=== PATIENT | female | born 1965 | race Caucasian/White ===

== ENCOUNTER 2022-01-11 15:21 | Emergency (ER) | payer MEDICAID ==
[~2022-01-11] VITALS: Ht 165.1 cm; Wt 81.4 kg
[2022-01-11 15:34] VITALS: BP 150/95
--- NOTE | 2022-01-11 15:41 | NUR ---
PT AMB TO BED 7
--- NOTE | 2022-01-11 16:00 | NUR ---
56 Y/O FEMALE BIB SELF C/O CRAMPING PAIN IN THE LOWER ABDOMEN 11/09, DENIES FEVER, NAUSEA OR VOMITING NKA PMH; DENIES
[2022-01-11 16:20] VITALS: BP 106/68
[2022-01-11] MEDS ORDERED: FLUC150T PO ×2 (16:30→16:46)
[2022-01-11] MEDS ORDERED: SULF-59 PO ×2 (16:30→16:46)
[2022-01-11] MEDS ORDERED: FLUCONAZOLE 100 MG TAB PO ONE (16:35)
--- NOTE | 2022-01-11 17:25 | NUR ---
Patient discharged with v/s stable. Written and verbal after care instructions given and explained. Patient alert, oriented and verbalized understanding of instructions. Ambulatory with steady gait. All questions addressed prior to discharge. ID band removed. Patient advised to follow up with PMD. Rx of FLUCONAZOLE, BACTRIM DS given. Patient educated on indication of medication including possible reaction and side effects. Opportunity to ask questions provided and answered.
== END 2022-01-11 17:25 | disposition home or self-care (01) ==
LOC: MED 15:21
DX: N39.0 Urinary tract infection, site not specified (principal); B37.9 Candidiasis, unspecified; R30.0 Dysuria; I10 Essential (primary) hypertension; E78.5 Hyperlipidemia, unspecified; Z88.0 Allergy status to penicillin; Z79.899 Other long term (current) drug therapy
CPT/HCPCS: 81002; 81025; 87086; 99283

== ENCOUNTER 2022-04-30 16:34 | Emergency (ER) | payer MEDICAID, OTHER ==
[~2022-04-30] VITALS: Ht 165.1 cm; Wt 81.6 kg
[~2022-04-30 16:34] MED LIST: FLUC150T PO; SULF-59 PO
[2022-04-30 17:25] VITALS: BP 144/92
--- NOTE | 2022-04-30 18:00 | NUR ---
56/F PRESENTS TO ED WITH C/O ALLERGIC REACTION SINCE SATURDAY, REPORTS TAKING OTC ALLERGY MEDS WITH NO RELIEF, DENIES USE OF NEW FOOD OR PRODUCTS, DENIES SOB. PATIENT DENIES PAIN, NO SIGNS OF HIVES OR REDNESS, REPORTS SKIN IS ITCHY.
[2022-04-30] MEDS ORDERED: DIPH25TA39 PO ×2 (18:18→20:04)
[2022-04-30] MEDS ORDERED: PRED20TA5 PO ×2 (18:18→20:04)
[2022-04-30] MEDS ORDERED: FAMO-92 PO ×2 (18:18→20:04)
[2022-04-30 19:05] VITALS: BP 144/92
--- NOTE | 2022-04-30 19:05 | NUR ---
Patient discharged with v/s stable. Written and verbal after care instructions ABOUT HIVES given and explained. Patient alert, oriented and verbalized understanding of instructions. Ambulatory with steady gait. All questions addressed prior to discharge. ID band removed. Patient advised to follow up with PMD. Rx of BENADRYL, PEPCID AND DELTASONE given. Patient educated on indication of medication including possible reaction and side effects. Opportunity to ask questions provided and answered.
== END 2022-04-30 19:05 | disposition home or self-care (01) ==
LOC: MED 16:34
DX: L50.9 Urticaria, unspecified (principal); I10 Essential (primary) hypertension; Z79.899 Other long term (current) drug therapy; Z88.0 Allergy status to penicillin
CPT/HCPCS: 99283

== ENCOUNTER 2022-10-19 11:43 | Emergency (ER) | payer OTHER ==
[~2022-10-19] VITALS: Ht 165.1 cm; Wt 80.7 kg
[~2022-10-19 11:43] MED LIST changes: +DIPH25TA39 PO; +FAMO-92 PO; +PRED20TA5 PO
[2022-10-19 11:51] VITALS: BP 124/89
--- NOTE | 2022-10-19 12:07 | NUR ---
56/F WALKED IN C/O RASH TO NECK, CHEST, AND UNDER THE BREAST ONSET 4 DAYS AGO. PMH: HTN, PRE-DM
[2022-10-19] MEDS ORDERED: LOTC TP (13:00)
[2022-10-19] MEDS ORDERED: TRIA0.029 TP (13:00)
== END 2022-10-19 13:08 | disposition home or self-care (01) ==
LOC: MED 11:43
DX: R21 Rash and other nonspecific skin eruption (principal); I10 Essential (primary) hypertension; Z79.899 Other long term (current) drug therapy; Z79.2 Long term (current) use of antibiotics; Z88.0 Allergy status to penicillin
CPT/HCPCS: 99283

== ENCOUNTER 2022-12-11 11:23 | Emergency (ER) | payer OTHER ==
[~2022-12-11] VITALS: Ht 165.1 cm; Wt 80.3 kg
[~2022-12-11 11:23] MED LIST changes: +LOTC TP; +TRIA0.029 TP
[2022-12-11 11:47] VITALS: BP 121/86
[2022-12-11] MEDS ORDERED: OLOP2.5D7 OP ×2 (12:59→13:00)
[2022-12-11] MEDS ORDERED: HYD1C TP ×2 (12:59→13:00)
[2022-12-11] MEDS ORDERED: CETI-24 PO ×2 (12:59→13:00)
--- NOTE | 2022-12-11 13:09 | NUR ---
56 Y/O FEMALE BIB SELF C/O ITCHINESS AND RASH ON THE RIGHT ARM AND REDNESS ON BILATERAL SCLERA X4DAYS, DENIES ANY TRAUMA PMH: HTN, HDL, PRE DM ALLERGY: PCN
--- NOTE | 2022-12-11 13:10 | NUR ---
Patient discharged with v/s stable. Written and verbal after care instructions ABOUT ATOPIC DERMATITIS, ALLERGIC CONJUNCTIVITIS given and explained. Patient alert, oriented and verbalized understanding of instructions. Ambulatory with steady gait. All questions addressed prior to discharge. ID band removed. Patient advised to follow up with PMD. Rx of CETERIZINE, HYDROCORTISONE, PATADAY 2.5ML given. Patient educated on indication of medication including possible reaction and side effects. Opportunity to ask questions provided and answered.
== END 2022-12-11 13:10 | disposition home or self-care (01) ==
LOC: MED 11:23
DX: H10.13 Acute atopic conjunctivitis, bilateral (principal); L29.9 Pruritus, unspecified; I10 Essential (primary) hypertension; Z88.0 Allergy status to penicillin; Z79.899 Other long term (current) drug therapy
CPT/HCPCS: 99282

== ENCOUNTER 2022-12-22 22:06 | Emergency (ER) | payer OTHER ==
[~2022-12-22] VITALS: Ht 165.1 cm; Wt 74.8 kg
[~2022-12-22 22:06] MED LIST changes: +CETI-24 PO; +HYD1C TP; +OLOP2.5D7 OP
[2022-12-22 22:12] VITALS: BP 136/86
[2022-12-22] MEDS ORDERED: methylPREDNISolone SS 125 MG/2 ML VIAL IVP ONE (23:20)
--- NOTE | 2022-12-22 23:30 | NUR ---
PT TO BED 8
--- NOTE | 2022-12-22 23:30 | NUR ---
PT IS THAI SPEAKER. PT IS AWAKE AND ALERT. NO DISTRESS ACUTE NOTED.
[2022-12-22] MEDS ORDERED: methylPREDNISolone SS 125 MG/2 ML VIAL IM ONE (23:35)
[2022-12-22] MEDS ORDERED: PRED20TA5 PO (23:55)
[2022-12-23] VITALS: BP 136/86
== END 2022-12-23 | disposition home or self-care (01) ==
LOC: MED 22:06
DX: H10.13 Acute atopic conjunctivitis, bilateral (principal); I10 Essential (primary) hypertension; Z88.0 Allergy status to penicillin; Z79.899 Other long term (current) drug therapy
CPT/HCPCS: 96372; 99283; J2930

== ENCOUNTER 2023-06-04 16:11 | Emergency (ER) | payer OTHER ==
[~2023-06-04] VITALS: Ht 170.2 cm; Wt 82.7 kg
[2023-06-04 16:44] VITALS: BP 135/78; PULSE 83; RESP 19; TEMP 97.8; O2SAT 95
[2023-06-04] MEDS ORDERED: FAMO-90 PO (17:19)
[2023-06-04] MEDS ORDERED: BEN50 PO (17:19)
[2023-06-04] MEDS: DEXAMETHASONE 10 MG/ML VIAL IM ONE (17:49)
[2023-06-04] MEDS: FAMOTIDINE 20 MG TAB PO ONE (17:50)
[2023-06-04 18:04] VITALS: BP 119/67; PULSE 89; RESP 18; TEMP 98; O2SAT 98
== END 2023-06-04 18:06 | disposition home or self-care (01) ==
LOC: MED 16:11
DX: L50.0 Allergic urticaria (principal); I10 Essential (primary) hypertension; E11.9 Type 2 diabetes mellitus without complications; E78.5 Hyperlipidemia, unspecified; Z88.0 Allergy status to penicillin; Z79.899 Other long term (current) drug therapy
CPT/HCPCS: 96372; 99283; J1100; Q0163

== ENCOUNTER 2023-08-07 16:32 | Emergency (ER) | payer OTHER ==
[~2023-08-07] VITALS: Ht 165.1 cm; Wt 82.6 kg
[~2023-08-07 16:32] MED LIST changes: +BEN50 PO; +FAMO-90 PO
[2023-08-07 17:22] VITALS: BP 123/88; PULSE 90; RESP 18; TEMP 98.3; O2SAT 98
[2023-08-07 17:29] VITALS: BP 131/73; PULSE 86; RESP 18; TEMP 98.4; O2SAT 98
[2023-08-07] MEDS ORDERED: PROM118S5 PO (18:25)
[2023-08-07] MEDS ORDERED: KEN.1C TP (18:25)
[2023-08-07] MEDS ORDERED: LOTC TP (18:25)
[2023-08-07] MEDS ORDERED: IBUP-2213 PO (18:25)
[2023-08-07 19:19] LABS: FLU A ANTIGEN negative (NEGATIVE); FLU B ANTIGEN NEGATIVE (NEGATIVE)
[2023-08-07] MEDS ORDERED: NIRM1TAB5 PO (19:24)
== END 2023-08-07 19:09 | disposition home or self-care (01) ==
LOC: MED 16:32
DX: U07.1 COVID-19 (principal); R21 Rash and other nonspecific skin eruption; I10 Essential (primary) hypertension; Z79.899 Other long term (current) drug therapy; Z79.2 Long term (current) use of antibiotics; Z88.0 Allergy status to penicillin
CPT/HCPCS: 71045; 99284

== ENCOUNTER 2023-09-13 23:55 | Inpatient (IN) | payer OTHER ==
[~2023-09-13] VITALS: Ht 165.1 cm; Wt 80.7 kg
[~2023-09-13 23:55] MED LIST changes: +IBUP-2213 PO; +KEN.1C TP; +NIRM1TAB5 PO; +PROM118S5 PO
[2023-09-14] VITALS (10 sets, daily range): BP systolic 111–117; BP diastolic 55–80; PULSE 100–126; RESP 18; TEMP 98.1–102.4; O2SAT 93–98
[2023-09-14] MEDS ORDERED: ACETAMINOPHEN EXTRA STRENGTH 500 MG TAB PO ONE (00:10)
[2023-09-14] MEDS ORDERED: NACL 0.9% 1,000 ML IV ONE (00:45)
[2023-09-14] MEDS ORDERED: KETOROLAC 30 MG/ML VIAL IVP ONE (00:45)
[2023-09-14 01:30] LABS: APPEARANCE,URINE CLEAR (CLEAR); BILIRUBIN,URINE NEGATIVE (NEGATIVE); BLOOD, URINE NEGATIVE (NEGATIVE); COLOR,URINE YELLOW (YELLOW); LEUKOCYTE ESTERASE ,URINE NEGATIVE (NEGATIVE); NITRITE, URINE NEGATIVE (NEGATIVE); PROTEIN,URINE NEGATIVE (NEGATIVE); UGLUCOSE NEGATIVE (NEGATIVE); UROBILINOGEN,URINE 0.2 EU/dL (0.2 - 1)
[2023-09-14] MEDS ORDERED: KETOROLAC 30 MG/ML VIAL ONE (01:57)
[2023-09-14 02:00] LABS: BASOPHILS # (AUTO) 0.1 K/uL (0.00-0.22); BASOPHILS % (AUTO) 0.3 % (0.0-2.0); EOSINOPHILS # (AUTO) 0.1 K/uL (0-0.4); EOSINOPHILS % (AUTO) 0.3 % (0.0-4.0); HEMOGLOBIN 13.1 g/dL (12.0-16.0); LYMPHOCYTES # (AUTO) 0.8 K/uL (2.5-16.5); MEAN CORPUSCULAR HEMOGLOBIN 30 pg (27-31); MEAN CORPUSCULAR HGB CONC 34 g/dL (33-37); MEAN CORPUSCULAR VOLUME 88.3 fL (80-94); MONOCYTES # (AUTO) 0.7 K/uL (0.8-1.0); MONOCYTES % (AUTO) 4.6 % (1.7-9.3); NEUTROPHILS # (AUTO) 14.3 K/uL (1.8-7.7); PLATELET COUNT (AUTO) 254 K/uL (140-450); RED BLOOD CELL COUNT(AUTO) 4.41 MIL/uL (4.20-5.40); RED CELL DISTRIBUTION WIDTH 13.6 % (11.6-13.7); WHITE BLOOD COUNT (AUTO) 15.9 K/uL (4.8-10.8)
[2023-09-14 02:22] LABS: ANION GAP 13.1 (8-16); CALCIUM 8.8 mg/dL (8.5-10.1); CARBON DIOXIDE 27.5 mmol/L (21-32); CREATININE 1.1 mg/dL (0.6-1.3); POTASSIUM 3.6 mmol/L (3.5-5.1)
[2023-09-14 02:36] LABS: NEUTROPHILS % (AUTO) 89.8 % (42.2-75.2)
[2023-09-14 02:43] LABS: LACTIC ACID 2.1 mmol/L (0.4-2.0)
[2023-09-14] MEDS ORDERED: CLINDAMYCIN 900 MG in DEXTROSE 5% 100 ML IV STA (02:46)
[2023-09-14] MEDS ORDERED: ONDANSETRON 4 MG/2 ML VIAL IVP ONE ×2 (02:50→08:35)
[2023-09-14] MEDS ORDERED: MORPHINE SULFATE 4 MG/ML SYR IVP ONE ×2 (02:50→08:35)
[2023-09-14] MEDS ORDERED: NACL 0.9% 1,500 ML IV ONE (02:50)
[2023-09-14] MEDS ORDERED: CLINDAMYCIN 900 MG/6 ML VIAL IV ONE (03:19)
[2023-09-14] MEDS ORDERED: ATOR10TA PO (06:51)
[2023-09-14] MEDS ORDERED: LOSA-272 PO (06:51)
[2023-09-14] MEDS ORDERED: LORazepam 2 MG/ML VIAL IVP ONE (09:45)
[2023-09-14] MEDS ORDERED: HYDROcodone/APAP 5/325 MG 1 TAB TAB PO PRN (10:50)
[2023-09-14] MEDS ORDERED: VANCOMYCIN PER PHARMACY MC PRN (10:50)
[2023-09-14] MEDS ORDERED: VANCOMYCIN 1,500 MG in DEXTROSE 5% 500 ML IV SCH (12:00)
[2023-09-14] MEDS ORDERED: VANCOMYCIN 500 MG VIAL ONE (12:51)
[2023-09-14] MEDS ORDERED: VANCOMYCIN 1,000 MG VIAL ONE (12:51)
[2023-09-14] MEDS: ACETAMINOPHEN 325 MG TAB PO PRN ×2 (15:03→22:12)
[2023-09-15 04:00] VITALS: BP 140/79; PULSE 115; RESP 18; TEMP 98.8; O2SAT 97
[2023-09-15 06:37] LABS: BASOPHILS % (AUTO) 0.3 % (0.0-2.0); EOSINOPHILS % (AUTO) 0.1 % (0.0-4.0); HEMATOCRIT 35.6 % (36-48); HEMOGLOBIN 11.6 g/dL (12.0-16.0); LYMPHOCYTES # (AUTO) 1.2 K/uL (2.5-16.5); LYMPHOCYTES % (AUTO) 6.6 % (20.5-51.1); MEAN CORPUSCULAR HEMOGLOBIN 29 pg (27-31); MEAN CORPUSCULAR HGB CONC 33 g/dL (33-37); MONOCYTES # (AUTO) 1.1 K/uL (0.8-1.0); MONOCYTES % (AUTO) 5.9 % (1.7-9.3); NEUTROPHILS # (AUTO) 16.1 K/uL (1.8-7.7); NEUTROPHILS % (AUTO) 87.1 % (42.2-75.2); PLATELET COUNT (AUTO) 224 K/uL (140-450); RED BLOOD CELL COUNT(AUTO) 3.96 MIL/uL (4.20-5.40); RED CELL DISTRIBUTION WIDTH 13.4 % (11.6-13.7); WHITE BLOOD COUNT (AUTO) 18.4 K/uL (4.8-10.8)
[2023-09-15 07:20] LABS: ANION GAP 13.1 (8-16); CALCIUM 8.5 mg/dL (8.5-10.1); CARBON DIOXIDE 25.2 mmol/L (21-32); CREATININE 0.8 mg/dL (0.6-1.3); POTASSIUM 3.3 mmol/L (3.5-5.1)
[2023-09-15 08:00] VITALS: BP 115/66; PULSE 99; RESP 18; TEMP 99.1; O2SAT 96
[2023-09-15] MEDS: ATORVASTATIN 20 MG TAB PO SCH (08:33)
[2023-09-15] MEDS: LOSARTAN 50 MG TAB PO SCH (08:33)
[2023-09-15] MEDS ORDERED: POTASSIUM CHLORIDE 10 MEQ TABER PO SCH (08:54)
[2023-09-15] MEDS: VANCOMYCIN 1,000 MG in DEXTROSE 5% 250 ML IV SCH ×2 (09:33→19:56)
[2023-09-15 11:10] VITALS: BP 123/68; PULSE 111; RESP 18; TEMP 101.4; O2SAT 94
[2023-09-15] MEDS: ACETAMINOPHEN 325 MG TAB PO PRN ×2 (11:18→17:26)
[2023-09-15] MEDS ORDERED: VANCOMYCIN 1.25GM PREMIX 250 ML IV SCH (12:00)
[2023-09-15 20:00] VITALS: BP 109/51; PULSE 99; RESP 18; TEMP 98.9; O2SAT 96
[2023-09-16 04:00] VITALS: BP 118/59; PULSE 90; RESP 18; TEMP 97.3; O2SAT 96
[2023-09-16] MEDS: ACETAMINOPHEN 325 MG TAB PO PRN ×2 (04:49→09:49)
[2023-09-16 08:30] LABS: ANION GAP 10.9 (8-16); CALCIUM 8.7 mg/dL (8.5-10.1); CARBON DIOXIDE 27.8 mmol/L (21-32); CREATININE 0.8 mg/dL (0.6-1.3); POTASSIUM 3.7 mmol/L (3.5-5.1)
[2023-09-16] MEDS ORDERED: VANCOMYCIN 1,000 MG in DEXTROSE 5% 250 ML IV SCH (09:00)
[2023-09-16 09:08] LABS: BASOPHILS # (AUTO) 0.1 K/uL (0.00-0.22); BASOPHILS % (AUTO) 0.4 % (0.0-2.0); EOSINOPHILS # (AUTO) 0.1 K/uL (0-0.4); EOSINOPHILS % (AUTO) 0.5 % (0.0-4.0); HEMATOCRIT 34.3 % (36-48); HEMOGLOBIN 11.5 g/dL (12.0-16.0); LYMPHOCYTES # (AUTO) 1.8 K/uL (2.5-16.5); LYMPHOCYTES % (AUTO) 10.7 % (20.5-51.1); MEAN CORPUSCULAR HEMOGLOBIN 30 pg (27-31); MEAN CORPUSCULAR HGB CONC 33 g/dL (33-37); MEAN CORPUSCULAR VOLUME 89.4 fL (80-94); MONOCYTES % (AUTO) 5.8 % (1.7-9.3); NEUTROPHILS # (AUTO) 13.8 K/uL (1.8-7.7); NEUTROPHILS % (AUTO) 82.6 % (42.2-75.2); PLATELET COUNT (AUTO) 227 K/uL (140-450); RED BLOOD CELL COUNT(AUTO) 3.84 MIL/uL (4.20-5.40); RED CELL DISTRIBUTION WIDTH 13.3 % (11.6-13.7); WHITE BLOOD COUNT (AUTO) 16.7 K/uL (4.8-10.8)
[2023-09-16] MEDS: ATORVASTATIN 20 MG TAB PO SCH (09:47)
[2023-09-16] MEDS: LOSARTAN 50 MG TAB PO SCH (09:52)
[2023-09-16] MEDS ORDERED: CLIN300C2 PO (14:35)
[2023-09-16 15:18] VITALS: BP 125/63; PULSE 81; RESP 18; TEMP 98
[2023-09-16 16:15] VITALS: O2SAT 96
== END 2023-09-16 17:28 | disposition home or self-care (01) | DRG 720 ==
LOC: MED 23:55 → MMU 09-14 10:50 → MTU 09-14 15:21
PROVIDERS: ADMIT Internal Medicine; ATTEND Internal Medicine
DX: A41.9 Sepsis, unspecified organism (principal); J96.10 Chronic respiratory failure, unspecified whether with hypoxia or hypercapnia; E78.00 Pure hypercholesterolemia, unspecified; N61.0 Mastitis without abscess; E78.5 Hyperlipidemia, unspecified; I10 Essential (primary) hypertension; N64.4 Mastodynia; Z88.0 Allergy status to penicillin
CPT/HCPCS: 36415; 71045; 71260; 76641; 80048; 80202; 81003; 83605; 83735; 85025; 87040; 87081; 87086; 96361; 96365; 96375; 96376; 99291; J1885; J2060; J2270; J2405; J3370; J3372; J3490; J7060; Q0092; Q9967

== ENCOUNTER 2024-06-20 19:14 | Emergency (ER) | payer OTHER ==
[~2024-06-20] VITALS: Ht 162.6 cm; Wt 79.9 kg
[~2024-06-20 19:14] MED LIST changes: +ALBU0.0912 INH; +ATOR10TA PO; +CLIN300C2 PO; +LOSA-272 PO; -SULF-59 PO
[2024-06-20 19:19] VITALS: BP 149/90; PULSE 78; RESP 18; TEMP 98; O2SAT 95
[2024-06-20 20:04] LABS: BILIRUBIN,URINE NEGATIVE (NEGATIVE); BLOOD, URINE NEGATIVE (NEGATIVE); COLOR,URINE YELLOW (YELLOW); LEUKOCYTE ESTERASE ,URINE 1+ (NEGATIVE); NITRITE, URINE NEGATIVE (NEGATIVE); PROTEIN,URINE NEGATIVE (NEGATIVE); UGLUCOSE NEGATIVE (NEGATIVE); UROBILINOGEN,URINE 0.2 EU/dL (0.2 - 1)
[2024-06-20 20:32] LABS: APPEARANCE,URINE SLIGHTLY HAZY (CLEAR)
[2024-06-20 20:33] LABS: RBC,URINE 0-5 /HPF (0-5)
[2024-06-20 20:34] LABS: BACTERIA,URINE 2+ /HPF (None Seen); SQUAMOUS EPITHELIAL CELL,UR 4-10 (MOD) /LPF (0-3 (FEW))
[2024-06-20] MEDS ORDERED: METR-520 PO (21:06)
[2024-06-20] MEDS ORDERED: SULF-59 PO (21:06)
[2024-06-20] MEDS ORDERED: PHEN-1877 PO (21:06)
[2024-06-20] MEDS: ACETAMINOPHEN EXTRA STRENGTH 500 MG TAB PO ONE (21:13)
[2024-06-20 22:05] VITALS: BP 149/90; PULSE 78; RESP 18; TEMP 98; O2SAT 95
== END 2024-06-20 22:05 | disposition home or self-care (01) ==
LOC: MED 19:14
DX: N30.00 Acute cystitis without hematuria (principal); N76.0 Acute vaginitis; B96.89 Other specified bacterial agents as the cause of diseases classified elsewhere; J45.909 Unspecified asthma, uncomplicated; E11.9 Type 2 diabetes mellitus without complications; I10 Essential (primary) hypertension; E78.5 Hyperlipidemia, unspecified; Z79.899 Other long term (current) drug therapy; Z88.0 Allergy status to penicillin
CPT/HCPCS: 81001; 87086; 87186; 87210; 99284